=== PATIENT | female | born 1945 | race Caucasian/White ===

== ENCOUNTER 2021-09-26 08:57 | Emergency (ER) | payer MEDICARE, BC ==
[2021-09-26] MEDS ORDERED: Labetalol 100 MG/20 ML MDV IVPUSH ONE (09:01)
[2021-09-26] MEDS ORDERED: niCARdipine/Normal Saline 20 MG/200 ML BAG IV SCH (09:15)
[2021-09-26] MEDS ORDERED: Iopamidol 755 MG/ML 500 ML Multipack Bottle IVPUSH STA (09:17)
[2021-09-26] MEDS ORDERED: ALTEPLASE IV ONE ×2 (09:40→09:52)
[2021-09-26 09:45] LABS: BLOOD UREA NITROGEN,BUN 9 mg/dL (7.0-18.0); CARBON DIOXIDE,CO2 26.9 mmol/L (21.0-32.0); CHLORIDE,CL 94 mmol/L (98-107); GLUCOSE RANDOM 126 mg/dL (74-106); POTASSIUM,K 5.1 mmol/L (3.5-5.1); SODIUM,NA 129 mmol/L (136-145)
[2021-09-26 09:48] LABS: ESTIMATED GFR 90 mL/min (>60)
[2021-09-26] MEDS ORDERED: Sodium Chloride 0.9% 1,000 ML IV ONE (09:52)
[2021-09-26] MEDS ORDERED: Nicotine 21 MG/24 Hr Patch TRDERM ONE (10:49)
== END 2021-09-26 11:29 ==
LOC: MW.ED 08:57
DX: I63.9 Cerebral infarction, unspecified (principal); F17.200 Nicotine dependence, unspecified, uncomplicated; R29.706 NIHSS score 6; Z20.822 Contact with and (suspected) exposure to COVID-19; Z92.82 Status post administration of tPA (rtPA) in a different facility within the last 24 hours prior to admission to current facility
CPT/HCPCS: 36415; 37195; 51702; 70450; 70496; 70498; 71045; 80053; 81003; 83735; 84484; 85025; 85610; 85730; 93005; 96374; 96375; 99285; A9270; J2997; J3490; J7030; Q9967; U0002